=== PATIENT | male | born 1955 | race Caucasian/White ===

== ENCOUNTER 2017-03-07 08:49 | Emergency (ER) | payer MEDICAID, OTHER ==
[2017-03-07 08:57] VITALS: TEMP 98.1; O2SAT 95
--- NOTE | 2017-03-07 10:33 | CT ---
PROCEDURE: CT HEAD WITHOUT CONTRAST. HISTORY: r/o ICH COMPARISON: Comparison made with CT scan brain dated 10/03/2016. . TECHNIQUE: Axial computed tomography images were obtained through the head/brain without intravenous contrast. Radiation dose: Total exam DLP = 851.87 mGy-cm. This CT exam was performed using one or more of the following dose reduction techniques: Automated exposure control, adjustment of the mA and/or kV according to patient size, and/or use of iterative reconstruction technique. FINDINGS: HEMORRHAGE: No acute parenchymal, subarachnoid nor extra-axial hemorrhage. BRAIN: Mild chronic periventricular white matter ischemic changes with patchy subcortical ischemic changes. Small chronic appearing bilateral basal nuclei lacunar type infarcts are also present. Minimal vascular calcifications are present. VENTRICLES: Mild generalized volume loss evidenced by enlargement of the ventricles and sulci. CALVARIUM: There are no acute calvarial fractures. PARANASAL SINUSES: Visualized paranasal sinuses are well-developed and currently well-aerated. MASTOID AIR CELLS: The visualized mastoid air complexes also well-developed and clear. OTHER FINDINGS: None. IMPRESSION: No acute intracranial hemorrhage. Chronic white matter and basal nuclei ischemic changes. Mild generalized volume loss.
[2017-03-07 10:48] LABS: BASO % 0.7 % (0.0-2.0); EOS # 0.8 K/uL (0.0-0.7); EOS % 12.8 % (0.0-4.0); HEMATOCRIT 44.9 % (35.0-51.0); MEAN CELL VOLUME 88.6 fL (80.0-94.0); MEAN CORPUSCULAR HEMOGLOBIN 29.4 pg (27.0-31.0); MEAN CORPUSCULAR HGB CONC 33.2 g/dL (33.0-37.0); MEAN PLATELET VOLUME 9.9 fL (7.2-11.7); MONO # 0.4 K/uL (0.0-0.8); MONO % 5.8 % (0.0-10.0); RED CELL DISTRIBUTION WIDTH 13.2 % (11.5-14.5); WHITE BLOOD COUNT 6.2 K/uL (4.8-10.8)
[2017-03-07 10:51] LABS: RBC URINE < 1 /hpf (0-3); URINE BILIRUBIN NEGATIVE (NEGATIVE); URINE BLOOD NEGATIVE (NEGATIVE); URINE COLOR Amber (YELLOW); URINE GLUCOSE (UA) NORMAL (Normal); URINE HYALINE CAST 0-2 /lpf (0-2); URINE KETONE NEGATIVE (NEGATIVE); URINE LEUKOCYTE ESTERASE NEG Leu/uL (Negative); URINE PROTEIN 2+ mg/dL (NEGATIVE); URINE UROBILINOGEN NORMAL mg/dL (0.2-1.0); WBC URINE 1 /hpf (0-5)
[2017-03-07 10:57] LABS: CHLORIDE 98 mmol/L (98-107); POTASSIUM 4.1 mmol/L (3.6-5.2); SODIUM 139 mmol/L (132-148)
[2017-03-07 10:59] LABS: AST/SGOT 25 U/L (17-59); CARBON DIOXIDE 26 mmol/L (22-30); GFR AFRICAN-AMERICAN > 60
[2017-03-07 11:00] LABS: ALB/GLOB RATIO 1.4 (1.0-2.1); ALKALINE PHOSPHATASE 98 U/L (38-126); ALT/SGPT 34 U/L (21-72); BLOOD UREA NITROGEN 17 mg/dL (9-20); CALCIUM 9.8 mg/dl (8.6-10.4); GLUCOSE,RANDOM 83 mg/dL (75-110); TOTAL PROTEIN 8.8 g/dL (6.3-8.3)
--- NOTE | 2017-03-07 11:15 | C.PDOC ---
History Of Present Illness 61 y/o male presents to the ED complaining of mild dizziness for two weeks. He states that it feels like the room is spinning and the sensation worsens with movement of the head. Patient denies chest pain, shortness of breath, blurry vision, headache, vomiting, fever, or other complaints. Chief Complaint (Nursing): Dizziness/Lightheaded History Per: Patient History/Exam Limitations: no limitations Onset/Duration Of Symptoms: Days (14), Persistent Current Symptoms Are (Timing): Still Present Fall Associated With With Symptoms: No Recent travel outside of the [place]: No Past Medical History Reviewed: Historical Data, Nursing Documentation, Vital Signs Vital Signs: Last Vital Signs Temp 98.1 F 03/07/17 08:55 Pulse 62 03/07/17 11:27 Resp 18 03/07/17 11:27 BP 143/79 03/07/17 11:27 Pulse Ox 95 03/07/17 11:45 - Medical History PMH: Atrial Fibrillation (years ago), CVA (ICH last year - no residual), HTN Surgical History: No Surg Hx Family History: States: Unknown Family Hx - Social History Hx Tobacco Use: No Hx Alcohol Use: No Hx Substance Use: No - Immunization History Hx Tetanus Toxoid Vaccination: No Hx Influenza Vaccination: No Hx Pneumococcal Vaccination: No Review Of Systems Except As Marked, All Systems Reviewed And Found Negative. Constitutional: Negative for: Fever Eyes: Negative for: Vision Change Cardiovascular: Negative for: Chest Pain Respiratory: Negative for: Shortness of Breath Gastrointestinal: Negative for: Vomiting Neurological: Positive for: Dizziness. Negative for: Headache Physical Exam - Physical Exam Appears: Non-toxic, No Acute Distress Skin: Normal Color, Warm, Dry Head: Atraumatic, Normacephalic Eye(s): bilateral: Normal Inspection, PERRL, EOMI Neck: Normal ROM, Supple Chest: Symmetrical Cardiovascular: Rhythm Regular Respiratory: Normal Breath Sounds, No Rales, No Rhonchi, No Wheezing Gastrointestinal/Abdominal: Normal Exam, Soft, No Tenderness Back: Normal Inspection, No CVA Tenderness Extremity: Normal ROM, No Swelling Neurological/Psych: Oriented x3, Normal Speech, Normal Cognition, Normal Cranial Nerves (II-XII intact), Normal Motor, Normal Sensation Gait: Steady ED Course And Treatment - Laboratory Results Result Diagrams: 03/07/17 10:40 03/07/17 10:40 ECG: Interpreted By [place] ECG Rhythm: Sinus Rhythm Interpretation Of ECG: normal axis, normal intervals. Rate From EC (bpm) O2 Sat by Pulse Oximetry: 95 (ra) Pulse Ox Interpretation: Normal - CT Scan/US CT Head Other Rad Studies (CT/US): Read By Radiologist (Marshall Serrano MD), Radiology Report Reviewed CT/US Interpretation: FINDINGS: HEMORRHAGE: No acute parenchymal, subarachnoid nor extra-axial hemorrhage. BRAIN: Mild chronic periventricular white matter ischemic changes with patchy subcortical ischemic changes. Small chronic appearing bilateral basal nuclei lacunar type infarcts are also present. Minimal vascular calcifications are present. VENTRICLES: Mild generalized volume loss evidenced by enlargement of the ventricles and sulci. CALVARIUM: There are no acute calvarial fractures. PARANASAL SINUSES: Visualized paranasal sinuses are well-developed and currently well-aerated. MASTOID AIR CELLS: The visualized mastoid air complexes also well-developed and clear. OTHER FINDINGS: None. IMPRESSION: No acute intracranial hemorrhage. Chronic white matter and basal nuclei ischemic changes. Mild generalized volume loss. Medical Decision Making Medical Decision Making: Plan: * EKG * Labs * CT Head * Antivert Labs appreciated and CT head report reviewed. On reevaluation, patient reports improvement of dizziness; denies any neurologic complaints, is ambulating well, is tolerating PO. Patient discharged home and advised to follow up with physician/clinic in 2-3 days or return to the ED for new or concerning symptoms. Disposition - Disposition Referrals: [facility], [Non-Staff] - Disposition: HOME/ ROUTINE Disposition Time: 11:30 Condition: IMPROVED Additional Instructions: Thank you for letting us take care of you today. Your provider was Dr. Yousif. You were treated for vertigo. The emergency medical care you received today was directed at your acute symptoms. If you were prescribed any medication, please fill it and take as directed. It may take several days for your symptoms to resolve. Return to the Emergency Department if your symptoms worsen, do not improve, or if you have any other problems. Please contact your doctor or call one of the physicians/clinics you have been referred to that are listed on the Patient Visit Information form that is included in your discharge packet. Bring any paperwork you were given at discharge with you along with any medications you are taking to your follow up visit. Our treatment cannot replace ongoing medical care by a primary care provider (PCP) outside of the emergency department. Thank you for allowing the [facility] team to be part of your care today. Follow up with your doctor in 2-3 days to be re-evaluated. Prescriptions: Hydrocortisone 2.5% (Rectal) [Anusol-HC] 30 applic [place] BID #1 tube Meclizine [Meclizine*] 25 mg PO Q6 PRN #20 tab PRN Reason: Dizziness Instructions: Vertigo (ED) Forms: Gen Discharge Inst Divehi Print Language: BULGARIAN - Clinical Impression Clinical Impression: Vertigo - Scribe Statement The provider has reviewed the documentation as recorded by the Scribe (Yuliana Sinclair) Provider Attestation: All medical record entries made by the Scribe were at my direction and personally dictated by me. I have reviewed the chart and agree that the record accurately reflects my personal performance of the history, physical exam, medical decision making, and the department course for this patient. I have also personally directed, reviewed, and agree with the discharge instructions and disposition.
[2017-03-07 11:28] VITALS: BP 143/79; PULSE 62; RESP 18
--- NOTE | 2017-03-12 13:57 | CARD ---
APPROVED REPORT EKG Measurement Heart [id number] <Conclusion> Normal sinus rhythm Minimal voltage criteria for LVH, may be normal variant Cannot rule out Inferior infarct, age undetermined Abnormal ECG
== END 2017-03-07 11:47 | disposition home or self-care (01) ==
LOC: C.ER 08:49
DX: R42 Dizziness and giddiness (principal)

== ENCOUNTER 2019-04-27 11:26 | Emergency (ER) | payer OTHER ==
[2019-04-27 11:47] VITALS: PULSE 60; RESP 18
[2019-04-27 12:37] LABS: BASO % 0.5 % (0.0-2.0); EOS # 0.5 K/uL (0.0-0.7); EOS % 10.2 % (0.0-4.0); HEMOGLOBIN 14.9 g/dL (12.0-18.0); LYMPH # 0.9 K/uL (1.0-4.3); LYMPH % 19.5 % (20.0-40.0); MEAN CORPUSCULAR HEMOGLOBIN 31.7 pg (27.0-31.0); MEAN CORPUSCULAR HGB CONC 34.8 g/dL (33.0-37.0); MEAN PLATELET VOLUME 10.2 fL (7.2-11.7); MONO # 0.5 K/uL (0.0-0.8); MONO % 11.1 % (0.0-10.0); NEUT # 2.6 K/uL (1.8-7.0); NEUT % 58.7 % (50.0-75.0); RBC 4.71 Mil/uL (4.40-5.90); RED CELL DISTRIBUTION WIDTH 13.4 % (11.5-14.5); WHITE BLOOD COUNT 4.5 K/uL (4.8-10.8)
--- NOTE | 2019-04-27 12:41 | C.PDOC ---
History Of Present Illness 63 y/o male,w/PMhx of HTN and hyperlipidemia, presents to the ER complaining of cough which has been present for the past 2 days. Patient is also complaining of right side flank pain which has been present for the past few days. in er pt in nad. c/o of mild arreaga. poor historian. Patient denies having fever,chills,CP, SOB, nausea, vomiting,dysuria, and hematuria. Time Seen by Provider: 04/27/19 11:37 Chief Complaint (Nursing): Cough, Cold, Congestion History Per: Patient History/Exam Limitations: no limitations Onset/Duration Of Symptoms: Days Current Symptoms Are (Timing): Still Present Severity: Moderate Past Medical History Reviewed: Historical Data, Nursing Documentation, Vital Signs Vital Signs: Last Vital Signs Temp 97.9 F 04/27/19 11:40 Pulse 60 04/27/19 11:40 Resp 18 04/27/19 11:40 BP 118/79 04/27/19 11:40 Pulse Ox 98 04/27/19 11:40 Primary Care Provider: Osman Smith - Medical History PMH: Atrial Fibrillation (years ago), CVA (ICH last year - no residual), Gastritis, HTN, Hyperlipidemia Denies: Chronic Kidney Disease Surgical History: No Surg Hx Family History: States: No Known Family Hx - Social History Hx Tobacco Use: No Hx Alcohol Use: No ("long time ago") Hx Substance Use: No - Immunization History Hx Tetanus Toxoid Vaccination: No Hx Influenza Vaccination: Yes Hx Pneumococcal Vaccination: No Review Of Systems Except As Marked, All Systems Reviewed And Found Negative. Constitutional: Negative for: Fever, Chills Cardiovascular: Negative for: Chest Pain Respiratory: Positive for: Cough. Negative for: Shortness of Breath Gastrointestinal: Positive for: Abdominal Pain. Negative for: Nausea, Vomiting Genitourinary: Negative for: Dysuria, Hematuria Physical Exam - Physical Exam Appears: No Acute Distress, Other (morbidly obese) Skin: Normal Color, Warm, Dry Head: Atraumatic, Normacephalic Eye(s): bilateral: Normal Inspection Nose: Normal Oral Mucosa: Moist Neck: Supple Chest: Symmetrical Cardiovascular: Rhythm Regular Respiratory: Normal Breath Sounds, No Rales, No Rhonchi, No Wheezing Gastrointestinal/Abdominal: Normal Exam, Soft, No Tenderness, No Guarding, No Rebound Back: No CVA Tenderness Neurological/Psych: Oriented x3, Normal Speech ED Course And Treatment - Laboratory Results Result Diagrams: 04/27/19 12:31 04/27/19 12:31 O2 Sat by Pulse Oximetry: 98 (RA) Pulse Ox Interpretation: Normal Medical Decision Making Medical Decision Making: ro viral syndrome, pneumonia, uti Plan: --Labs --UA --CXR pt in nad in er. urine neg for infection and blood. history non consistent with renal colic. pt in nad in er. cxr neg. pain improevd. advise outp fu. return precautions Disposition - Disposition Disposition: HOME/ ROUTINE Disposition Time: 15:00 Condition: GOOD Additional Instructions: return to er with worsening. please see your doctor/clinic. Instructions: Acute Abdomen (Belly Pain), Cough, Adult (DC) Forms: [facility] ([place]) - Clinical Impression Clinical Impression: Viral syndrome, Flank pain - Scribe Statement The provider has reviewed the documentation as recorded by the Emmanuelle Snow Provider Attestation: All medical record entries made by the Emmanuelle were at my direction and per sonally dictated by me. I have reviewed the chart and agree that the record accurately reflects my personal performance of the history, physical exam, medical decision making, and the department course for this patient. I have also personally directed, reviewed, and agree with the discharge instructions and disposition.
[2019-04-27 12:46] LABS: INR 1.2; PARTIAL THROMBOPLASTIN TIME 32.8 SECONDS (21-34); PROTHROMBIN TIME 12.7 SECONDS (9.7-12.2)
[2019-04-27 13:06] LABS: ALB/GLOB RATIO 1.2 (1.0-2.1); ALBUMIN 4.5 g/dL (3.5-5.0); ALT/SGPT 35 U/L (21-72); AST/SGOT 31 U/L (17-59); BLOOD UREA NITROGEN 21 mg/dL (9-20); GFR NON-AFRICAN AMERICAN > 60; LIPASE 169 U/L (23-300)
--- NOTE | 2019-04-27 13:12 | RAD ---
Date of service: 04/27/2019 HISTORY: Abdominal pain COMPARISON: 10/06/2016 TECHNIQUE: Chest PA and lateral FINDINGS: LUNGS: No active pulmonary disease. PLEURA: No significant pleural effusion identified. No pneumothorax apparent. CARDIOVASCULAR: Tortuous ectatic aorta. Normal cardiac size. OSSEOUS STRUCTURES: No significant abnormalities. VISUALIZED UPPER ABDOMEN: Normal. OTHER FINDINGS: None. IMPRESSION: No active disease.
[2019-04-27 14:56] LABS: URINE BILIRUBIN NEGATIVE (NEGATIVE); URINE BLOOD NEGATIVE (NEGATIVE); URINE CLARITY Clear (Clear); URINE COLOR Yellow (YELLOW); URINE GLUCOSE (UA) NORMAL (Normal); URINE LEUKOCYTE ESTERASE NEG Leu/uL (Negative); URINE PROTEIN NEGATIVE (NEGATIVE)
[2019-04-27 15:38] VITALS: BP 126/82; TEMP 98.7
[2019-04-27 15:50] VITALS: O2SAT 98
== END 2019-04-27 15:16 | disposition home or self-care (01) ==
LOC: C.ER 11:26
DX: R10.9 Unspecified abdominal pain (principal); B34.9 Viral infection, unspecified; I10 Essential (primary) hypertension; E78.5 Hyperlipidemia, unspecified; I48.91 Unspecified atrial fibrillation; Z86.73 Personal history of transient ischemic attack (TIA), and cerebral infarction without residual deficits